=== PATIENT | female | born 1960 | race Caucasian/White ===

== ENCOUNTER → 2018-06-14 | Outpatient (CLI) | payer BC ==
--- NOTE | 2018-06-15 11:55 | MM ---
Reason for exam: screening (asymptomatic). Last mammogram was performed 7 years and 4 months ago. History: Patient is postmenopausal and had first child at age 37. Family history of breast cancer in cousin. Benign core biopsy of the left breast. Physical Findings: A clinical breast exam by your physician is recommended on an annual basis and results should be correlated with mammographic findings. MG 3D Screening Mammo W/Cad Bilateral CC and MLO view(s) were taken. Prior study comparison: February 12, 2011, mammogram, performed at [place]. November 19, 2009, mammogram, performed at [place]. There are scattered fibroglandular densities. Finding: There are typically benign dystrophic, round, grouped/clustered calcifications in the lower inner quadrant of the left breast. Previous mammotome biopsy in the left breast. There is no discrete abnormality. ASSESSMENT: Benign, BI-RAD 2 RECOMMENDATION: Routine screening mammogram of both breasts in 1 year.
== END | disposition home or self-care (01) ==
LOC: RADMAMWWP 07:47
PROVIDERS: ATTEND Family Medicine
DX: Z12.31 Encounter for screening mammogram for malignant neoplasm of breast (principal)
CPT/HCPCS: 77063; 77067

== ENCOUNTER → 2018-07-18 | Outpatient (CLI) | payer BC ==
--- NOTE | 2018-07-18 10:10 | XR ---
EXAMINATION TYPE: XR Hip Complete LT DATE OF EXAM: 07/18/2018 CLINICAL HISTORY: Hip pain for one month TECHNIQUE: AP and frogleg views of the left hip are obtained. COMPARISON: None. FINDINGS: There is no acute fracture/dislocation evident in the left hip. The joint space in the le ft hip demonstrate mild left femoral acetabular arthropathy with small marginal osteophytes and cepha lad joint space narrowing as well as acetabular roof sclerosis. The overlying soft tissue appears unr emarkable. IMPRESSION: There is no acute fracture or dislocation in the left hip. Mild left femoral acetabular arthropathy.
--- NOTE | 2018-07-18 10:15 | XR ---
EXAMINATION TYPE: XR knee limited LT DATE OF EXAM: 07/18/2018 CLINICAL HISTORY: Left TECHNIQUE: Frontal and lateral views of the left knee are obtained. COMPARISON: None. FINDINGS: There is no acute fracture/dislocation evident in left knee. The tri-compartment joint sp aces demonstrate marginal osteophytes as well as patellofemoral joint space narrowing there is small fabella is incidentally seen. No suprapatellar joint effusion. The overlying soft tissue demonstrate superficial venous varicosities medially. IMPRESSION: There is no acute fracture or dislocation in the left knee. Moderate tricompartmental ar thropathy
== END | disposition home or self-care (01) ==
LOC: RADXRMAIN 09:21
PROVIDERS: ATTEND Family Medicine
DX: M16.12 Unilateral primary osteoarthritis, left hip (principal); M17.12 Unilateral primary osteoarthritis, left knee
CPT/HCPCS: 73502

== ENCOUNTER 2018-08-20 11:50 | Emergency (ER) | payer BC ==
[2018-08-20 12:13] VITALS: BP 143/94; PULSE 91; RESP 18; TEMP 98.3
[2018-08-20 12:54] LABS: Amphetamine Screen,Urine Not Detected (NotDetected); Barbiturate Screen,Urine Not Detected (NotDetected); Benzodiazepines Screen,Urine Not Detected (NotDetected); Cocaine Screen,Urine Not Detected (NotDetected); Methadone Screen, Urine Not Detected (NotDetected); Opiate Screen,Urine Not Detected (NotDetected); Oxycodone Screen, Urine Not Detected (NotDetected); Phencyclidine Screen,Urine Not Detected (NotDetected); Tricyclic Antidepressant,Urine Not Detected (NotDetected); Urn Cannabinoid Scrn Detected (NotDetected)
--- NOTE | 2018-08-20 15:05 | ED ---
General Adult HPI - General Chief complaint: Psychiatric Symptoms Stated complaint: mental health Time Seen by Provider: 08/20/18 12:14 Source: patient, police, RN notes reviewed Mode of arrival: ambulatory Limitations: no limitations - History of Present Illness Initial comments: Patient 57-year-old female presented to the emergency room today with a chief complaint of needing psychiatric evaluation. Patient states that she was at work earlier today when police showed up to bring her here for. Patient states that she was talking to a friend through Facebook and made a comment as a joke. He states that the friend had called her but she was busy at work. She states that she made this, as a joke and had no intentions of her herself. States that she has been more depressed lately but does see a therapist. Patient denies any suicidal, homicidal thoughts or plans. Denies any other physical complaints. Patient denies any recent fever, chills, shortness of breath, chest pain, back pain, abdominal pain, nausea or vomiting, numbness or tingling, headaches or visual changes, or any other complaints. - Related Data Home Medications Medication Instructions Recorded Confirmed Hydrochlorothiazide [Hydrodiuril] 25 mg PO DAILY 08/20/18 08/20/18 Ibuprofen [Motrin] 600 - 1,200 mg PO Q8HR PRN 08/20/18 08/20/18 buPROPion HCL [Wellbutrin SR] 150 mg PO BID 08/20/18 08/20/18 Allergies Allergy/AdvReac Type Severity Reaction Status Date / Time No Known Allergies Allergy Verified 08/20/18 13:09 Review of Systems ROS Statement: Those systems with pertinent positive or pertinent negative responses have been documented in the HPI. ROS Other: All systems not noted in ROS Statement are negative. Past Medical History Past Medical History: Hypertension History of Any Multi-Drug Resistant Organisms: None Reported Past Surgical History: Tonsillectomy Past Psychological History: Depression Smoking Status: Current every day smoker Past Alcohol Use History: Rare Past Drug Use History: Marijuana General Exam - General Exam Comments Initial Comments: General: The patient is awake and alert, in no distress, and does not appear acutely ill. Eye: Pupils are equal, round and reactive to light. Extra-ocular movements are intact. No nystagmus. There is normal conjunctiva bilaterally. No signs of icterus. Ears, nose, mouth and throat: There are moist mucous membranes and no oral lesions. Neck: The neck is supple, there is no tenderness or JVD. Cardiovascular: There is a regular rate and rhythm. No murmur, rub or gallop is appreciated. Respiratory: Lungs are clear to auscultation, respirations are non-labored, breath sounds are equal. No wheezes, stridor, rales, or rhonchi. Musculoskeletal: Normal ROM, no tenderness. Sensation intact. Strength 5/5. Pulses equal bilaterally 2+. Neurological: A&O x 3. CN II-XII intact, There are no obvious motor or sensory deficits. Coordination appears grossly intact. Speech is normal. Skin: Skin is warm and dry and no rashes or lesions are noted. Psychiatric: Cooperative, appropriate mood & affect, normal judgment. Limitations: no limitations Course Vital Signs 08/20/18 12:02 Temperature 98.3 F Pulse Rate 91 Respiratory 18 Rate Blood Pressure 143/94 O2 Sat by Pulse 96 Oximetry Medical Decision Making - Medical Decision Making Patient seen here in the emergency room by mental further recommended the patient be followed up outpatient. Patient denies any suicidal or homicidal thoughts or plans. States that, that was made earlier today was joke. She was brought in by police to be evaluated. Patient feels comfortable being discharged. Patient contracts for safety. Advised return for any other concerns. - Lab Data Lab Results 08/20/18 Range/Units 12:28 Urine Opiates Screen Not Detected (NotDetected) Ur Oxycodone Screen Not Detected (NotDetected) Urine Methadone Screen Not Detected (NotDetected) Ur Propoxyphene Screen Not Detected (NotDetected) Ur Barbiturates Screen Not Detected (NotDetected) U Tricyclic Antidepress Not Detected (NotDetected) Ur Phencyclidine Scrn Not Detected (NotDetected) Ur Amphetamines Screen Not Detected (NotDetected) U Methamphetamines Scrn Not Detected (NotDetected) U Benzodiazepines Scrn Not Detected (NotDetected) Urine Cocaine Screen Not Detected (NotDetected) U Marijuana (THC) Screen Detected H (NotDetected) Disposition Clinical Impression: Depression Disposition: HOME SELF-CARE Condition: Good Instructions: Depression (DC) Additional Instructions: Please follow-up with mental health as discussed. Please return to emergency room if the symptoms increase or worsen or for any other concerns. Is patient prescribed a controlled substance at d/c from ED?: No Referrals: Jesus Pineda DO [Primary Care Provider] - 1-2 days Time of Disposition: 15:04
== END 2018-08-20 15:11 | disposition home or self-care (01) ==
LOC: EC 11:50
DX: F32.9 Major depressive disorder, single episode, unspecified (principal); I10 Essential (primary) hypertension; F17.200 Nicotine dependence, unspecified, uncomplicated; Z79.899 Other long term (current) drug therapy
CPT/HCPCS: 80306; 99283

== ENCOUNTER 2020-02-20 15:21 | Observation (INO) | payer OTHER ==
[2020-02-20 15:38] VITALS: RESP 18
--- NOTE | 2020-02-20 16:33 | ED ---
General Adult HPI - General Chief complaint: Chest Pain Stated complaint: Chest and shoulder pain Time Seen by Provider: 02/20/20 16:00 Source: patient, RN notes reviewed Mode of arrival: ambulatory Limitations: no limitations - History of Present Illness Initial comments: Patient is a pleasant 59-year-old female presenting to the emergency Department with complaints of chest discomfort. Onset of symptoms was after doing light activity a couple of hours ago. Discomfort is persistent remains mild. Tightness is left upper chest with some relation towards left arm. No associated dyspnea, nausea or diaphoresis. Patient has had some what similar s ymptoms previously with negative evaluation. Patient did have varicose vein of her left leg exploded just over a week ago however symptoms have near resolved since then. No calf pain or swelling at this time. - Related Data Home Medications Medication Instructions Recorded Confirmed Hydrochlorothiazide [Hydrodiuril] 25 mg PO DAILY 08/20/18 08/20/18 Ibuprofen [Motrin] 600 - 1,200 mg PO Q8HR PRN 08/20/18 08/20/18 buPROPion HCL [Wellbutrin SR] 150 mg PO BID 08/20/18 08/20/18 Allergies Allergy/AdvReac Type Severity Reaction Status Date / Time No Known Allergies Allergy Verified 02/20/20 15:37 Review of Systems ROS Statement: Those systems with pertinent positive or pertinent negative responses have been documented in the HPI. ROS Other: All systems not noted in ROS Statement are negative. Constitutional: Denies: fever Eyes: Denies: eye pain ENT: Denies: ear pain Respiratory: Denies: cough, dyspnea Cardiovascular: Reports: chest pain Endocrine: Denies: fatigue Gastrointestinal: Denies: abdominal pain Genitourinary: Denies: dysuria Musculoskeletal: Denies: back pain Skin: Reports: as per HPI Neurological: Denies: headache Psychiatric: Reports: anxiety Past Medical History Past Medical History: Hypertension History of Any Multi-Drug Resistant Organisms: None Reported Past Surgical History: Tonsillectomy Past Psychological History: Depression Smoking Status: Current every day smoker Past Alcohol Use History: Rare Past Drug Use History: Marijuana General Exam Limitations: no limitations General appearance: alert, in no apparent distress Head exam: Present: normocephalic Eye exam: Present: normal appearance Neck exam: Present: normal inspection Respiratory exam: Present: normal lung sounds bilaterally Cardiovascular Exam: Present: regular rate, normal rhythm Expanded Peripheral pulses: 2+: Radial (R), Radial (L), Dorsalis Pedis (R), Dorsalis Pedis (L) GI/Abdominal exam: Present: soft. Absent: tenderness Extremities exam: Present: normal inspection. Absent: pedal edema, calf tenderness Neurological exam: Present: alert Psychiatric exam: Present: normal affect, normal mood Skin exam: Present: other (Minimal bruising left leg) Course Vital Signs 02/20/20 02/20/20 15:35 17:19 Temperature 99.3 F Pulse Rate 124 H 98 Respiratory 18 18 Rate Blood Pressure 160/89 144/94 O2 Sat by Pulse 96 99 Oximetry EKG Findings - EKG Comments: EKG Findings:: Sinus tachycardia 116. LA 170. QRS 92. QT 3:30. QTC 469. Superior axis. Septal Q waves. No acute ST change. Medical Decision Making - Medical Decision Making Patient reevaluated and updated. Case discussed with Dr. Mojica who did evaluate patient and will admit covering for Dr. Patrick, who admits for Dr. Pineda. - Lab Data Result diagrams: 02/20/20 17:12 02/20/20 17:12 Lab Results 02/20/20 02/20/20 02/20/20 Range/Units 17:12 17:12 17:12 WBC 12.3 H (3.8-10.6) k/uL RBC 4.72 (3.80-5.40) m/uL Hgb 15.3 (11.4-16.0) gm/dL Hct 43.4 (34.0-46.0) % MCV 91.8 (80.0-100.0) fL MCH 32.4 (25.0-35.0) pg MCHC 35.3 (31.0-37.0) g/dL RDW 12.2 (11.5-15.5) % Plt Count 295 (150-450) k/uL Neutrophils % 78 % Lymphocytes % 14 % Monocytes % 5 % Eosinophils % 2 % Basophils % 1 % Neutrophils # 9.6 H (1.3-7.7) k/uL Lymphocytes # 1.7 (1.0-4.8) k/uL Monocytes # 0.6 (0-1.0) k/uL Eosinophils # 0.2 (0-0.7) k/uL Basophils # 0.1 (0-0.2) k/uL PT 10.6 (9.0-12.0) sec INR 1.0 (<1.2) APTT 24.4 (22.0-30.0) sec D-Dimer 1.74 H (<0.60) mg/L FEU Sodium 136 L (137-145) mmol/L Potassium 2.9 L (3.5-5.1) mmol/L Chloride 102 (98-107) mmol/L Carbon Dioxide 26 (22-30) mmol/L Anion Gap 8 mmol/L BUN 18 H (7-17) mg/dL Creatinine 0.64 (0.52-1.04) mg/dL Est GFR (CKD-EPI)AfAm >90 (>60 ml/min/1.73 sqM) Est GFR (CKD-EPI)NonAf >90 (>60 ml/min/1.73 sqM) Glucose 105 H (74-99) mg/dL Calcium 9.3 (8.4-10.2) mg/dL Magnesium 1.7 (1.6-2.3) mg/dL Total Bilirubin 0.5 (0.2-1.3) mg/dL AST 25 (14-36) U/L ALT 19 (4-34) U/L Alkaline Phosphatase 76 (38-126) U/L Troponin I (0.000-0.034) ng/mL Total Protein 7.1 (6.3-8.2) g/dL Albumin 4.2 (3.5-5.0) g/dL 02/20/20 Range/Units 17:12 WBC (3.8-10.6) k/uL RBC (3.80-5.40) m/uL Hgb (11.4-16.0) gm/dL Hct (34.0-46.0) % MCV (80.0-100.0) fL MCH (25.0-35.0) pg MCHC (31.0-37.0) g/dL RDW (11.5-15.5) % Plt Count (150-450) k/uL Neutrophils % % Lymphocytes % % Monocytes % % Eosinophils % % Basophils % % Neutrophils # (1.3-7.7) k/uL Lymphocytes # (1.0-4.8) k/uL Monocytes # (0-1.0) k/uL Eosinophils # (0-0.7) k/uL Basophils # (0-0.2) k/uL PT (9.0-12.0) sec INR (<1.2) APTT (22.0-30.0) sec D-Dimer (<0.60) mg/L FEU Sodium (137-145) mmol/L Potassium (3.5-5.1) mmol/L Chloride (98-107) mmol/L Carbon Dioxide (22-30) mmol/L Anion Gap mmol/L BUN (7-17) mg/dL Creatinine (0.52-1.04) mg/dL Est GFR (CKD-EPI)AfAm (>60 ml/min/1.73 sqM) Est GFR (CKD-EPI)NonAf (>60 ml/min/1.73 sqM) Glucose (74-99) mg/dL Calcium (8.4-10.2) mg/dL Magnesium (1.6-2.3) mg/dL Total Bilirubin (0.2-1.3) mg/dL AST (14-36) U/L ALT (4-34) U/L Alkaline Phosphatase (38-126) U/L Troponin I <0.012 (0.000-0.034) ng/mL Total Protein (6.3-8.2) g/dL Albumin (3.5-5.0) g/dL - Radiology Data Radiology results: report reviewed (Ultrasound left leg compatible with DVT. Computed tomography scan of the chest shows no definitive pulmonary embolism. Limited exam. Possible bronchitis.), image reviewed (Chest x-ray shows mild diffuse interstitial density, may reflect bronchitis or asthma. Possible atypical pneumonia.) Disposition Clinical Impression: Chest pain, DVT (deep venous thrombosis) Disposition: ADMITTED IP TO THIS HOSP Is patient prescribed a controlled substance at d/c from ED?: No Referrals: Jesus Pineda DO [Primary Care Provider] - 1-2 days Decision Time: 19:02
[2020-02-20] MEDS ORDERED: NITROGLYCERIN OINT 1 INCH/GM PACKET TOPICAL STA (16:41)
[2020-02-20] MEDS ORDERED: ASPIRIN 81 MG PO STA (16:41)
[2020-02-20 17:31] LABS: Basophils # (A) 0.1 k/uL (0-0.2); Basophils % (A) 1 %; Eosinophils # (A) 0.2 k/uL (0-0.7); Eosinophils % (A) 2 %; HCT 43.4 % (34.0-46.0); HGB 15.3 gm/dL (11.4-16.0); Lymphocytes # (A) 1.7 k/uL (1.0-4.8); Lymphocytes % (A) 14 %; MCH 32.4 pg (25.0-35.0); MCHC 35.3 g/dL (31.0-37.0); MCV 91.8 fL (80.0-100.0); Mean Platelet Volume 7.2; Monocytes # (A) 0.6 k/uL (0-1.0); Monocytes % (A) 5 %; Neutrophils # (A) 9.6 k/uL (1.3-7.7); Neutrophils % (A) 78 %; Platelet Count 295 k/uL (150-450); RBC 4.72 m/uL (3.80-5.40); RDW 12.2 % (11.5-15.5); WBC 12.3 k/uL (3.8-10.6)
[2020-02-20 17:42] LABS: ALT 19 U/L (4-34); AST 25 U/L (14-36); African American GFR (CKD) >90 (>60 ml/min/1.73 sqM); Albumin 4.2 g/dL (3.5-5.0); Alkaline Phosphatase 76 U/L (38-126); Anion Gap 8 mmol/L; Blood Urea Nitrogen 18 mg/dL (7-17); Calcium 9.3 mg/dL (8.4-10.2); Carbon Dioxide 26 mmol/L (22-30); Chloride 102 mmol/L (98-107); Glucose 105 mg/dL (74-99); Magnesium 1.7 mg/dL (1.6-2.3); Non-African American GFR(CKD) >90 (>60 ml/min/1.73 sqM); Potassium 2.9 mmol/L (3.5-5.1); Sodium 136 mmol/L (137-145); Total Bilirubin 0.5 mg/dL (0.2-1.3); Total Protein 7.1 g/dL (6.3-8.2)
[2020-02-20 17:44] LABS: Partial Thromboplastin Time 24.4 sec (22.0-30.0); Prothrombin Time 10.6 sec (9.0-12.0)
--- NOTE | 2020-02-20 17:44 | XR ---
EXAMINATION TYPE: XR chest 2V DATE OF EXAM: 02/20/2020 COMPARISON: None HISTORY: 59-year-old female with chest pain TECHNIQUE: PA and lateral views FINDINGS: Dextroconvexity scoliosis. Heart normal size. Aorta and and pulmonary vasculature within normal limit s. Mild interstitial prominence of unknown chronicity. No gigi consolidation or pleural effusion. IMPRESSION: Mild diffuse interstitial density may reflect bronchitis or chronic asthma. Correlate for possible at ypical pneumonias.
[2020-02-20 17:53] LABS: D-Dimer 1.74 mg/L FEU (<0.60)
--- NOTE | 2020-02-20 18:19 | US ---
EXAMINATION TYPE: US venous doppler duplex LE LT DATE OF EXAM: 02/20/2020 6:07 PM COMPARISON: NONE CLINICAL HISTORY: 59-year-old female with left lower extremity pain x 8 days. Patient does not take b lood thinners. SIDE PERFORMED: Left TECHNIQUE: The lower extremity deep venous system is examined utilizing real time linear array sonog verónica with graded compression, doppler sonography and color-flow sonography. FINDINGS: VESSELS IMAGED: External Iliac Vein (EIV) Common Femoral Vein Deep Femoral Vein Greater Saphenous Vein * Femoral Vein Popliteal Vein Small Saphenous Vein * Proximal Calf Veins (* superficial vessels) Left Leg: There appear to be internal echoes within the upper left CFV/ left EIV. Internal echoes se en within left greater saphenous vein. Left prox calf veins through left femoral vein appear compress ible and shows color flow. IMPRESSION: Internal echoes within the left external iliac vein, upper left common femoral vein, and left greater saphenous vein. Findings compatible with left lower extremity DVT and SVT.
[2020-02-20] MEDS ORDERED: POTASSIUM CHLORIDE ER 20 MEQ TAB.ER PO STA (18:22)
[2020-02-20] MEDS ORDERED: POTASSIUM CHLORIDE 2 MEQ/ML 20 ML VIAL IVPB STA (18:22)
[2020-02-20] MEDS ORDERED: POTASSIUM CHLORIDE 20 MEQ in WATER FOR INJECTION 1 100ML.BAG IVPB STA (18:28)
--- NOTE | 2020-02-20 18:43 | CT ---
EXAMINATION TYPE: CT angio chest DATE OF EXAM: 02/20/2020 COMPARISON: Correlation and left lower extremity Doppler ultrasound same day HISTORY: 59-year-old female SOB, chest tightness TECHNIQUE: Contiguous axial scanning of the chest performed with IV Contrast, patient injected with 8 0cc mL of Isovue 370. Coronal/sagittal MIP reconstructions performed. CT DLP: 583.6 mGycm Automated exposure control for dose reduction was used. FINDINGS: Heart normal size without pericardial effusion. No flattening of the interventricular septum or reflu x of contrast into the hepatic veins. Minimal coronary artery calcifications are present. Aorta normal caliber with a conventional arthrosis of branching anatomy. No thoracic lymphadenopathy by CT size criteria. Satisfactory opacification of the pulmonary arterial system but with breathing motion artifact. Allow ing for this limitation, no pulmonary embolus is seen. Assessment of the inferior lingula in particul ar is very degraded. Mild diffuse bronchial wall thickening without consolidation or pleural effusion. Minimal biapical pl eural parenchymal scarring. There may be underlying fatty infiltration of the liver. Bones: Dextroconvex scoliosis centered along the upper thoracic spine. No osseous process. IMPRESSION: 1. SCATTERED BREATHING MOTION ARTIFACTS. THE INFERIOR LINGULA IN PARTICULAR IS NONDIAGNOSTIC. OTHERWI SE, NO DEFINITE PULMONARY EMBOLUS. 2. MILD DIFFUSE SPONDYLOTIC THICKENING COULD REFLECT BRONCHITIS OR CHRONIC ASTHMA. 3. UPPER THORACIC SCOLIOSIS.
[2020-02-20] MEDS ORDERED: NITROGLYCERIN SL TABS 0.4 MG TAB SUBLINGUAL PRN (19:02)
[2020-02-20] MEDS ORDERED: HEPARIN SODIUM,PORCINE 5,000 UNIT/ML 1 ML VIAL IV PRN (19:02)
[2020-02-20] MEDS ORDERED: HEPARIN SODIUM,PORCINE 10,000 UNIT/ML 1 ML VIAL IV ONE (19:02)
[2020-02-20] MEDS: HEPARIN SOD,PORK IN 0.45% NACL 25,000 UNIT in 0.45% NACL 1 250ML.BAG IV SCH (19:20)
[2020-02-20] MEDS ORDERED: HYDROcodone/APAP 5-325MG 1 EACH TAB PO PRN (20:08)
[2020-02-20] MEDS ORDERED: ACETAMINOPHEN TAB 500 MG TAB PO PRN (20:08)
[2020-02-20] MEDS ORDERED: HYDROmorphone 0.5 MG/0.5 ML SYRINGE IVP PRN (20:08)
[2020-02-20] MEDS ORDERED: TEMAZEPAM 15 MG CAP PO PRN (21:00)
[2020-02-20] MEDS: ALPRAZolam 0.25 MG TAB PO PRN (21:03)
--- NOTE | 2020-02-20 23:25 | HP ---
HISTORY AND PHYSICAL DATE OF SERVICE: 02/20/2020 CHIEF COMPLAINT: Chest pain and left calf pain. HISTORY OF PRESENT ILLNESS: This 59-year-old woman with a past medical history of multiple medical problems including hypertension, history of depression, being followed by Dr. Jesus Pineda in the outpatient setting was complaining of chest pain which was felt in the anterior part and left side of the chest, pressure type, mild to moderate intensity. The discomfort persisted as mild and some tightness in the left upper chest and as well as some left arm was also noted. Patient came to [facility] and admitted for further evaluation and treatment. The patient also notes pain and swelling of the left calf area for a few days ago which just happened before and after according to her. There is no history of any fever, rigors, chills, pressure. Occasional cough is reported. Patient has noted hypokalemia and hyponatremia. White count is also slightly elevated. Otherwise, the patient underwent a chest x-ray which was reviewed personally by me showed mild diffuse interstitial changes. The patient also had a CT angio of the chest. The CT angio showed scattered breathing motion artifacts. Otherwise, minimal interstitial shadowing was also noted. The venous Doppler of the leg was noted to have possible DVT of the left upper leg. The patient also had superficial venous thrombosis. Patient admitted for further evaluation and treatment. There is no history of any rigors or chills. PAST MEDICAL HISTORY: History of hypertension, history of depression, history of nicotine dependence history THC. MEDICATIONS: Medications prior to admission, home medications are: 1. Wellbutrin SR 150 mg p.o. b.i.d. 2. Motrin 600 mg q.8 p.r.n. 3. HydroDIURIL 25 mg p.o. daily. ALLERGIES: ntd FAMILY HISTORY: No history of heart disease or strokes in the family. SOCIAL HISTORY: History of smoking. Occasional medical marijuana. REVIEW OF SYSTEMS: ENT: No diminished hearing or diminished vision. CARDIOVASCULAR SYSTEM: As mentioned earlier. RESPIRATORY SYSTEM: As mentioned earlier. GI: As mentioned earlier. : No dysuria. NERVOUS SYSTEM: No numbness or weakness. ALLERGY/IMMUNOLOGY: No history of asthma or hay fever. MUSCULOSKELETAL: As mentioned earlier. HEMATOLOGY/ONCOLOGY: No history of anemia. ENDOCRINE: No history of diabetes or hypothyroidism. CONSTITUTIONAL: As mentioned earlier: DERMATOLOGY: Negative. RHEUMATOLOGY: Negative. PSYCHIATRY: As mentioned earlier. PHYSICAL EXAMINATION: The patient is alert and oriented x3. Pulse 124, blood pressure 160/89, respiration 18, temperature 99.3, pulse ox 96% on room air. HEENT: Conjunctive normal. NECK: No jugular venous distention. CARDIOVASCULAR: S1, S2 muffled. RESPIRATORY: Breath sounds diminished at the bases. No rhonchi, no crackles. ABDOMEN: Soft, nontender. No mass palpable. LEGS: Varicose veins especially on the left leg and some are present. NERVOUS SYSTEM: Higher functions as mentioned. Moves all 4 limbs. No focal motor or sensory deficits. LYMPHATICS: No lymphadenopathy of the neck, axillae or groin. SKIN: As mentioned earlier. JOINTS: No active deforming arthropathy. LABS: Labs are at this time show WBC 12.3, sodium 136, potassium 2.9. ASSESSMENT: 1. Chest pain for unstable angina. 2. Possible acute deep venous thrombosis of the left leg, superficial and deep. 3. Hyponatremia. 4. Hypokalemia. 5. Increased WBC. 6. Hypertension. 7. Depression. 8. Continued ongoing nicotine dependence. 9. History of medical marijuana. 10.Obesity with body mass index of 36.6. RECOMMENDATIONS AND DISCUSSION: This 59-year-old woman who presented with multiple complex medical issues, at this time I recommend to continue the current medications, continue symptomatic treatment. Rule out myocardial infarction. Unstable angina protocol. I will initiate IV heparin in any case because of the possibility of acute DVT. I would also recommend empiric antibiotics and also continue to monitor. COVID-19 will be tested and I would also recommend hematology/oncology consult, Dr. Sesay also. A 2D echo also will be ordered. Patient also will require a stress test at some point. There is no evidence of any acute DVT in the lungs and the patient is febrile. We will continue the further workup for possible pneumonia as well, but currently we will resume the home medications. Prognosis guarded. A copy of this dictation is being forwarded to Dr. Pineda who is the primary physician. HORACIO / MANDI: [id number] / MTDD
[2020-02-21] MEDS: ALPRAZolam 0.25 MG TAB PO PRN (01:22)
[2020-02-21] MEDS: NITROGLYCERIN OINT 1 INCH/GM PACKET TOPICAL SCH ×3 (03:22→06:40)
[2020-02-21 06:57] LABS: Basophils # (A) 0.1 k/uL (0-0.2); Basophils % (A) 1 %; Eosinophils # (A) 0.3 k/uL (0-0.7); Eosinophils % (A) 3 %; HCT 39.7 % (34.0-46.0); HGB 13.1 gm/dL (11.4-16.0); Lymphocytes # (A) 3.1 k/uL (1.0-4.8); Lymphocytes % (A) 32 %; MCH 30.6 pg (25.0-35.0); MCHC 33.1 g/dL (31.0-37.0); MCV 92.7 fL (80.0-100.0); Mean Platelet Volume 7.7; Monocytes # (A) 0.6 k/uL (0-1.0); Monocytes % (A) 6 %; Neutrophils # (A) 5.5 k/uL (1.3-7.7); Neutrophils % (A) 57 %; Platelet Count 285 k/uL (150-450); RBC 4.29 m/uL (3.80-5.40); RDW 12.2 % (11.5-15.5); WBC 9.6 k/uL (3.8-10.6)
[2020-02-21 07:15] LABS: INR 1.1 (<1.2); Prothrombin Time 11.2 sec (9.0-12.0)
[2020-02-21 07:53] LABS: African American GFR (CKD) >90 (>60 ml/min/1.73 sqM); Anion Gap 7 mmol/L; Blood Urea Nitrogen 12 mg/dL (7-17); Carbon Dioxide 21 mmol/L (22-30); Chloride 110 mmol/L (98-107); Cholesterol 200 mg/dL (<200); Glucose 88 mg/dL (74-99); HDL Cholesterol 35 mg/dL (40-60); LDL Cholesterol,Calculated 141 mg/dL (0-99); Non-African American GFR(CKD) >90 (>60 ml/min/1.73 sqM); Potassium 3.3 mmol/L (3.5-5.1); Sodium 138 mmol/L (137-145); Triglycerides 118 mg/dL (<150)
[2020-02-21] MEDS ORDERED: POTASSIUM CHLORIDE ER 20 MEQ TAB.ER PO STA (08:49)
[2020-02-21] MEDS ORDERED: ASPIRIN 325 MG TAB PO SCH (09:00)
--- NOTE | 2020-02-21 10:13 | P.CRDCN ---
History of Present Illness Consult date: 02/21/20 Chief complaint: Chest pain History of present illness: This is a very pleasant 59-year-old female patient with no significant past medical history who presented initially to the hospital complaining of chest discomfort. Beside that she was experiencing left lower extremity swelling for the last several days. She underwent in the emergency room a venous to plexus study which came in to be abnormal was evidence off deep venous thrombosis. The patient does have a job where she sits for long time. Currently the patient is on heparin IV and she is in process of being switched to oral anticoagulation for possible discharge later on today. We involved in the care of the patient because of chest discomfort. The patient stated that when she presented to the emergency room she was experiencing chest discomfort, in the mid of the chest, as sharp, without any radiation to the arms or neck or shoulders, and without any associated symptoms. The patient stated that no history of coronary artery disease or congestive heart failure or cardiac arrhythmia. She is not a smoker. No significant family history of coronary artery disease. The EKG showed sinus rhythm without any significant ST or T-wave abnormalities. The cardiac enzymes were checked and came in to be unremarkable. I advised the patient to undergo a stress test to rule out severe underlying coronary artery disease but the patient would like to go home and have the test as an outpatient. Past Medical History Past Medical History: Hypertension History of Any Multi-Drug Resistant Organisms: None Reported Past Surgical History: Tonsillectomy Past Psychological History: Depression Smoking Status: Current every day smoker Past Alcohol Use History: Rare Past Drug Use History: Marijuana Medications and Allergies Home Medications Medication Instructions Recorded Confirmed Type Hydrochlorothiazide [Hydrodiuril] 25 mg PO DAILY 08/20/18 02/20/20 History Ibuprofen [Advil] 600 mg PO ONCE PRN 02/20/20 02/20/20 History buPROPion HCL [Wellbutrin XL] 150 mg PO DAILY 02/20/20 02/20/20 History Apixaban [Eliquis Starter Pack 0 mg PO DIRECTED 30 Days #1 pack 02/21/20 Rx (for VTE)] Allergies Allergy/AdvReac Type Severity Reaction Status Date / Time No Known Allergies Allergy Verified 02/20/20 15:37 Physical Exam Vitals: Vital Signs Temp Pulse Resp BP Pulse Ox 02/21/20 07:41 98 F 79 18 125/84 97 02/21/20 06:03 74 18 123/83 99 02/20/20 23:54 76 18 129/85 98 02/20/20 17:19 98 18 144/94 99 02/20/20 15:35 99.3 F 124 H 18 160/89 96 Intake and Output 02/20/20 02/21/20 02/21/20 22:59 06:59 14:59 Intake Total 101.24 Balance 101.24 Intake: Intake, IV Titration 101.24 Amount Heparin Sod,Pork in 0.45% 101.24 NaCl 25,000 unit In 0.45 % NaCl 1 250ml.bag @ 18 UNITS/KG/HR 16.329 mls/hr IV .[id number] [facility] Rx#: [id number] Other: Weight 90.718 kg - Constitutional General appearance: no acute distress - Respiratory Respiratory: bilateral: CTA - Cardiovascular Rhythm: regular Heart sounds: normal: S1, S2 Results 02/21/20 06:41 02/21/20 06:41 Cardiac Enzymes 02/20/20 02/20/20 02/21/20 Range/Units 17:12 17:12 00:42 AST 25 (14-36) U/L Troponin I <0.012 <0.012 (0.000-0.034) ng/mL 02/21/20 Range/Units 06:41 AST (14-36) U/L Troponin I <0.012 (0.000-0.034) ng/mL Coagulation 02/20/20 02/21/20 02/21/20 Range/Units 17:12 00:42 06:41 PT 10.6 11.2 (9.0-12.0) sec APTT 24.4 >200.0 H* (22.0-30.0) sec Lipids 02/21/20 Range/Units 06:41 Triglycerides 118 (<150) mg/dL Cholesterol 200 H (<200) mg/dL HDL Cholesterol 35 L (40-60) mg/dL CBC 02/20/20 02/21/20 Range/Units 17:12 06:41 WBC 12.3 H 9.6 (3.8-10.6) k/uL RBC 4.72 4.29 (3.80-5.40) m/uL Hgb 15.3 13.1 (11.4-16.0) gm/dL Hct 43.4 39.7 (34.0-46.0) % Plt Count 295 285 (150-450) k/uL Comprehensive Metabolic Panel 02/20/20 02/21/20 Range/Units 17:12 06:41 Sodium 136 L 138 (137-145) mmol/L Potassium 2.9 L 3.3 L (3.5-5.1) mmol/L Chloride 102 110 H (98-107) mmol/L Carbon Dioxide 26 21 L (22-30) mmol/L BUN 18 H 12 (7-17) mg/dL Creatinine 0.64 0.45 L (0.52-1.04) mg/dL Glucose 105 H 88 (74-99) mg/dL Calcium 9.3 8.0 L (8.4-10.2) mg/dL AST 25 (14-36) U/L ALT 19 (4-34) U/L Alkaline Phosphatase 76 (38-126) U/L Total Protein 7.1 (6.3-8.2) g/dL Albumin 4.2 (3.5-5.0) g/dL Current Medications Generic Name Dose Route Start Last Admin Trade Name Freq PRN Reason Stop Dose Admin Acetaminophen 500 mg 02/20/20 20:08 Tylenol Tab PO Q6HR PRN Fever and/ or Pain Hydrocodone Bitart/Acetaminophen 1 each 02/20/20 20:08 [place] 5-325 PO Q6HR PRN Pain Alprazolam 0.25 mg 02/20/20 20:08 02/21/20 01:22 Xanax PO 0.25 mg TID PRN Administration Anxiety Aspirin 325 mg 02/21/20 09:00 02/21/20 09:03 Aspirin PO 325 mg DAILY KERVIN Administration Heparin Sodium (Porcine) 0 unit 02/20/20 19:02 Heparin IV PER PROTOCOL PRN Low PTT Protocol Hydromorphone HCl 0.5 mg 02/20/20 20:08 Dilaudid IVP Q6HR PRN Severe Pain Heparin Sodium/Sodium Chloride 250 mls @ 16.329 mls/hr 02/20/20 19:15 02/21/20 02:56 25,000 unit/ Sodium Chloride IV 15 units/kg/hr .[id number] KERVIN 13.608 mls/hr Titration Protocol 18 UNITS/KG/HR Cefazolin Sodium 2 gm/ Sodium 50 mls @ 100 mls/hr 02/21/20 05:00 02/21/20 06:36 Chloride IVPB 100 mls/hr Q8H KERVIN Administration Nitroglycerin 0.4 mg 02/20/20 19:02 Nitrostat SUBLINGUAL Q5M PRN Chest Pain Nitroglycerin 1 inch 02/21/20 00:00 02/21/20 06:40 Nitro-Bid Oint TOPICAL Not Given Q6HR [facility] Sodium Chloride 10 ml 02/20/20 21:00 02/21/20 09:03 Saline Flush IV 10 ml BID KERVIN Administration Temazepam 15 mg 02/20/20 21:00 Restoril PO HS PRN Insomnia Intake and Output 02/20/20 02/21/20 02/21/20 22:59 06:59 14:59 Intake Total 101.24 Balance 101.24 Intake: Intake, IV Titration 101.24 Amount Heparin Sod,Pork in 0.45% 101.24 NaCl 25,000 unit In 0.45 % NaCl 1 250ml.bag @ 18 UNITS/KG/HR 16.329 mls/hr IV .[id number] [facility] Rx#: [id number] Other: Weight 90.718 kg 02/21/20 06:41 02/21/20 06:41 Assessment and Plan Assessment: Assessment Left lower extremity DVT Atypical chest pain Plan Acute coronary event was ruled out PE was ruled out Stress test probably as an outpatient
[2020-02-21 12:38] VITALS: BP 155/92; PULSE 69; TEMP 98.2
[2020-02-21] MEDS: HEPARIN SOD,PORK IN 0.45% NACL 25,000 UNIT in 0.45% NACL 1 250ML.BAG IV SCH (12:38)
--- NOTE | 2020-02-21 20:55 | ECHOF ---
Referral Reason:cp MEASUREMENTS -------- HEIGHT: 157.5 cm WEIGHT: 90.7 kg BP: 123/83 IVSd: 1.2 cm (0.6 - 1.1) LVIDd: 4.0 cm (3.9 - 5.3) LVPWd: 1.1 cm (0.6 - 1.1) IVSs: 1.4 cm LVIDs: 2.5 cm LVPWs: 1.7 cm LA Diam: 3.3 cm (2.7 - 3.8) RVIDd: 3.1 cm (< 3.3) LAESV Index (A-L): 22.99 ml/m Ao Diam: 3.0 cm (2.0 - 3.7) AV Cusp: 2.0 cm (1.5 - 2.6) EPSS: 0.4 cm MV E Sahil: 1.19 m/s MV DecT: 195 ms MV A Sahil: 0.90 m/s MV E/A Ratio: 1.32 RAP: 5.00 mmHg RVSP: 23.88 mmHg MV EF SLOPE: 87.23 mm/s (70 - 150) MV EXCURSION: 17.25 mm (> 18.000) FINDINGS -------- Sinus rhythm. This was a technically good study. The left ventricular size is normal. There is borderline concentric left ventricular hypertrophy. Overall left ventricular systolic function is normal with, an EF between 60 - 65 %. The right ventricle is normal in size. Normal LA size by volume 22+/-6 ml/m2. The right atrium is normal in size. Interatrial and interventricular septum intact. The aortic valve is trileaflet, and appears structurally normal. No aortic stenosis or regurgitation. The mitral valve is normal. Mild tricuspid regurgitation present. Right ventricular systolic pressure is normal at < 35 mmHg. Trace/mild (physiologic) pulmonic regurgitation. The aortic root size is normal. Normal inferior vena cava with normal inspiratory collapse consistent with estimated right atrial pre ssure of 5 mmHg. There is no pericardial effusion. CONCLUSIONS -------- 1. Sinus rhythm. 2. This was a technically good study. 3. The left ventricular size is normal. 4. There is borderline concentric left ventricular hypertrophy. 5. Overall left ventricular systolic function is normal with, an EF between 60 - 65 %. 6. The right ventricle is normal in size. 7. Normal LA size by volume 22+/-6 ml/m2. 8. The right atrium is normal in size. 9. Interatrial and interventricular septum intact. 10. The aortic valve is trileaflet, and appears structurally normal. No aortic stenosis or regurgitat ion. 11. The mitral valve is normal. 12. Mild tricuspid regurgitation present. 13. Right ventricular systolic pressure is normal at < 35 mmHg. 14. Trace/mild (physiologic) pulmonic regurgitation. 15. The aortic root size is normal. 16. Normal inferior vena cava with normal inspiratory collapse consistent with estimated right atrial pressure of 5 mmHg. 17. There is no pericardial effusion. FOOD DEMONSTRATOR: Jordana Foster RDCS
--- NOTE | 2020-02-22 01:07 | P.CONS ---
History of Present Illness - Reason for Consult Consult date: 02/21/20 LLE DVT - History of Present Illness The pt is a 59 yr old WF, with overall controlled medical problems. The pt came in with a 2 day h/o LLE pain and swelling in the calf, progressive. She also noted some mild chest tightness and LUE discomfort off and on. In the ER, doppler revealed EIV and CFV DVT. CTA was negative The pt was admitted and started on IV heparin, and consult placed She has no prior documented DVT. She reported some swelling in the medial lower left thigh after one of her pregnancies. However she did not recall any imaging or any anticoagulant treatment. Apparently symptoms resolved spontaneously within a few days. She has a family h/o a sister with PE She denied any conventional risk factors such as prolonged travel, surgeries, hospitalizations, steroid use or hormonal supplementation She does have some soft risk factors such as varicose veins in the LLE, and smoking. In the [facility] for several weeks prior to the event, she was working at home, mostly sitting down. She reported at least a few days of sitting for at least some hours with her legs bent under her. Review of Systems Constitutional: Denies chills, Denies fever Eyes: denies blurred vision, denies pain Ears: deny: decreased hearing, ear discharge, earache, tinnitus Ears, nose, mouth and throat: Denies headache, Denies sore throat Cardiovascular: Reports chest pain Respiratory: Denies cough Gastrointestinal: Denies abdominal pain, Denies diarrhea, Denies nausea, Denies vomiting Genitourinary: Denies dysuria, Denies hematuria Menstruation: Reports postmenopausal Integumentary: Denies pruritus, Denies rash Neurological: Denies numbness, Denies weakness Psychiatric: Reports depression (controlled with meds), Denies anxiety Endocrine: Denies fatigue, Denies weight change Hematologic/Lymphatic: Reports as per HPI, Reports thrombophilia Past Medical History Past Medical History: Hypertension History of Any Multi-Drug Resistant Organisms: None Reported Past Surgical History: Tonsillectomy Past Psychological History: Depression Smoking Status: Current every day smoker Past Alcohol Use History: Rare Past Drug Use History: Marijuana Medications and Allergies Home Medications Medication Instructions Recorded Confirmed Type Hydrochlorothiazide [Hydrodiuril] 25 mg PO DAILY 08/20/18 02/20/20 History Ibuprofen [Advil] 600 mg PO ONCE PRN 02/20/20 02/20/20 History buPROPion HCL [Wellbutrin XL] 150 mg PO DAILY 02/20/20 02/20/20 History Apixaban [Eliquis Starter Pack 0 mg PO DIRECTED 30 Days #1 pack 02/21/20 Rx (for VTE)] Allergies Allergy/AdvReac Type Severity Reaction Status Date / Time No Known Allergies Allergy Verified 02/20/20 15:37 Physical Exam Vitals: Vital Signs Temp Pulse Resp BP Pulse Ox 02/21/20 12:36 98.2 F 69 18 155/92 98 02/21/20 07:41 98 F 79 18 125/84 97 02/21/20 06:03 74 18 123/83 99 - Constitutional General appearance: no acute distress - EENT Eyes: EOMI, PERRLA ENT: hearing grossly normal, normal oropharynx - Neck Neck: no lymphadenopathy Thyroid: bilateral: normal size - Respiratory Respiratory: bilateral: CTA - Cardiovascular Rhythm: regular Heart sounds: normal: S1, S2 - Gastrointestinal General gastrointestinal: normal bowel sounds, soft - Integumentary Integumentary: normal - Neurologic Neurologic: CNII-XII intact - Musculoskeletal Musculoskeletal: generalized weakness, strength equal bilaterally - Psychiatric Psychiatric: A&O x's 3, appropriate affect Results CBC & Chem 7: 02/21/20 06:41 02/21/20 06:41 Labs: Abnormal Lab Results - Last 24 Hours (Table) 02/21/20 02/21/20 02/21/20 Range/Units 00:42 06:41 09:37 APTT >200.0 H* 71.0 H (22.0-30.0) sec Potassium 3.3 L (3.5-5.1) mmol/L Chloride 110 H (98-107) mmol/L Carbon Dioxide 21 L (22-30) mmol/L Creatinine 0.45 L (0.52-1.04) mg/dL Calcium 8.0 L (8.4-10.2) mg/dL Cholesterol 200 H (<200) mg/dL LDL Cholesterol, Calc 141 H (0-99) mg/dL HDL Cholesterol 35 L (40-60) mg/dL Chest x-ray: report reviewed CT scan - chest: report reviewed Venous US: report reviewed Assessment and Plan (1) DVT (deep venous thrombosis) Narrative/Plan: This is the pt 's 1st documented episode. She had a prior h/o some LLE symptoms related to , but there was no documented VTE or treatment at that time. - The pt is currently on IV heparin. She can be transitioned over to orals and then discharged. One of the NOACs would be appropriate, as long as she has coverage for the same - The pt does not have any conventional provoking factors. She does have a c ombination of soft risk factors, such as LLE varicose veins, smoking, as well as recent relative inactivity, including prolonged sitting with poor LE position. I would thus recommend at least a 3 mth period of anticoagulation, followed by risk profile evaluation with repeat imaging and D Dimer to decide duration of treatment - Given her family history, and clinical presentation, I discussed testing for a possible hypercoag state. The results would likely not affect her management, but could have implications for her family if positive. She is interested in testing, and this will be ordered as an outpt. - She is uptodate with her mammogram, but not with her colonoscopy. Status: Acute Code(s): I82.409 - ACUTE EMBOLISM AND THOMBOS UNSP DEEP VN UNSP LOWER EXTREMITY SNOMED Code(s): 400270548 Plan: Defer to the admitting service for management of her her other medical problems.
--- NOTE | 2020-02-22 09:17 | P.DS ---
Providers Date of admission: 02/20/20 19:04 Expected date of discharge: 02/21/20 Attending physician: Liliana Mojica Consults: 02/20/20 19:03 Consult Physician Urgent Consulting Provider: Tamir Black Consult Reason/Comments: cp, dvt Do you want consulting provider notified?: Yes 02/20/20 20:08 Consult Physician Routine Consulting Provider: Austin Sesay Consult Reason/Comments: dvt Do you want consulting provider notified?: Yes Primary care physician: Jesus Pineda [place] [facility] Course: Final diagnosis Chest pain for unstable angina acute deep vein thrombosis of the left leg, superficial and deep Hyponatremia Hypokalemia Increased WBC Hypertension Depression Continued ongoing nicotine dependence history of medical marijuana obesity with a body mass index of 36.6 Discharge disposition Patient is being discharged in a stable condition with guarded prognosis to home and will follow-up with Dr. Pineda in the outpatient setting. Patient will also follow-up with cardiology and hematology in the outpatient setting as well. Patient was initiated on Eliquis and will continue in the outpatient setting a prescription along with a coupon was provided for the patient. Total time taken is 35 minutes. History of present illness This is a 59-year-old female who was recently admitted with chest pain pressure type as well as some swelling of the left calf area and was being closely monitored. Doppler study showed a DVT in the left lower extremity in the upper part of the leg. Patient was initiated on heparin drip. Cardiology and hematology consulted. Patient also underwent a CT angiogram showing minimal interstitial shadowing along with scattered breathing motion artifacts with no evidence of a pulmonary embolism. Patient's white blood count was slightly elevated upon admission and IV antibiotics initiated. White blood count today is normal. Patient underwent an echo showed overall left ventricular systolic function normal with an EF between 60 and 65%. Cardiology recommending stress test although patient would like to do this as an outpatient. Patient states her chest pain has improved status post receiving potassium supplements. Patient's potassium was 2.9 on admission and currently 3.3 today. She will be given an additional 40 meq of potassium and instructed to repeat labs in a few days with primary care provider. Patient verbalized understanding and agrees with treatment plan. Patient would like to go home today. Currently no reports of chest pain, shortness of breath, or palpitations. Patient is afebrile. No reports of nausea or vomiting and patient is tolerating diet. Discussed with the patient at length about continuing with a heart healthy diet and avoid tobacco use. Patient will be discharged today. On exam vital signs are stable. Temp is 98.2F, pulse is 69, respirations are 18, blood pressure is 155/92, oxygen saturation is 98% on room air. Cardio S1, S2 are present. Respiratory shows diminished breath sounds at the bases with no wheezing or rhonchi noted. Abdomen is soft and nontender. Nervous system shows no focal deficits. Please refer to medication reconciliation sheet for a list of medications. Patient Condition at Discharge: Stable Plan - Discharge Summary New Discharge Prescriptions: New Apixaban [Eliquis Starter Pack (for VTE)] 0 mg PO DIRECTED 30 Days #1 pack Continue Hydrochlorothiazide [Hydrodiuril] 25 mg PO DAILY buPROPion HCL [Wellbutrin XL] 150 mg PO DAILY Ibuprofen [Advil] 600 mg PO ONCE PRN PRN Reason: Pain Discharge Medication List Hydrochlorothiazide [Hydrodiuril] 25 mg PO DAILY 08/20/18 [History] Ibuprofen [Advil] 600 mg PO ONCE PRN 02/20/20 [History] buPROPion HCL [Wellbutrin XL] 150 mg PO DAILY 02/20/20 [History] Apixaban [Eliquis Starter Pack (for VTE)] 0 mg PO DIRECTED 30 Days #1 pack 02/21/20 [Rx] Follow up Appointment(s)/Referral(s): Tamir Black MD [STAFF PHYSICIAN] - 1 Week Jesus Pineda DO [Primary Care Provider] - 1-2 days Activity/Diet/Wound Care/Special Instructions: Activity Limited until follow-up Eliquis prescription sent to Deniz goetz at [facility] for pickup Follow-up with primary care provider this week Follow-up with cardiology in the outpatient setting in 1-2 weeks to schedule stress test Avoid tobacco use Continue current diet Discharge Disposition: HOME SELF-CARE
== END 2020-02-21 12:22 | disposition home or self-care (01) ==
LOC: EC 15:21 → INTOOBSV 19:04 → 3SCARD 19:04 → UNDODISIN 02-21 12:22
PROVIDERS: ADMIT Hospitalist; ATTEND Hospitalist
DX: I82.4Z2 Acute embolism and thrombosis of unspecified deep veins of left distal lower extremity (principal); I82.812 Embolism and thrombosis of superficial veins of left lower extremity; I20.0 Unstable angina; D72.829 Elevated white blood cell count, unspecified; E87.1 Hypo-osmolality and hyponatremia; E87.6 Hypokalemia; I10 Essential (primary) hypertension; I83.92 Asymptomatic varicose veins of left lower extremity; F32.9 Major depressive disorder, single episode, unspecified; F17.200 Nicotine dependence, unspecified, uncomplicated; E66.9 Obesity, unspecified; Z68.36 Body mass index [BMI] 36.0-36.9, adult; Z79.899 Other long term (current) drug therapy; Z79.1 Long term (current) use of non-steroidal anti-inflammatories (NSAID); Z82.49 Family history of ischemic heart disease and other diseases of the circulatory system; Z03.818 Encounter for observation for suspected exposure to other biological agents ruled out
CPT/HCPCS: 96366 ×2; 96376; 96368; 96365; 99291; 36415; 93005 ×2; 93306; 85379; 80061; 80053; 80048; 83735; 84484 ×2; 85025 ×2; 85610 ×2; 85730 ×2; 71046; 93971; 71275; G0378 ×2; U0003; J1644 ×2; J3480; J0690 ×2; Q9967; 87635